=== PATIENT | female | born 1995 | race Caucasian/White ===

== ENCOUNTER → 2018-07-11 | Outpatient (CLI) | payer MEDICAID ==
--- NOTE | 2018-07-11 16:20 | RADIOLOGY REPORT (SQ) ---
EXAM DESCRIPTION: U/S OB 14+ TRNABD 1GES W/O DOP COMPLETED DATE/TIME: 07/11/2018 3:50 pm REASON FOR STUDY: ENCNTR FOR SUPRVSN OF NORMAL FIRST PREG, SECOND TRIMESTER Z34.02 ENCNTR FOR SUPRV SN OF NORMAL FIRST PREG, SECOND TRIME COMPARISON: None. TECHNIQUE: Static and Dynamic grayscale imaging performed of gravid uterus using transabdominal appr oach. Additional selected color Doppler and spectral images recorded. All stored on PACS. LIMITATIONS: None. FINDINGS: FETUSES SEEN:1 EGA: 18 weeks 2 days Calculated using BPD,FL,HC,AC documented on images. No discrepancy with clinica l dates. RUFUS: 12/10/2018 EFW: 232+/- 34 grams PERCENTILE: Not calculated. VANNESSA: Adequate amount. PLACENTA: Posterior GRADE: I PRESENTATION: Breech. ANATOMY: HEART RATE: 144 beats per minute. FOUR CHAMBER HEART: Visualized. THREE VESSEL CORD: Yes. CORD INSERTION: Visualized. KIDNEYS AND BLADDER: Visualized. Appear normal. STOMACH: Visualized. Appears normal. SPINE: Normal as visualized. BRAIN AND LATERAL VENTRICLES: Visualized. Appear normal. OTHER: No other significant finding. MATERNAL ADNEXA: Right ovary measures 2.7 x 1.7 x 1.3 cm. Left ovary measures 3.4 x 1.8 x 2.2 cm. CERVICAL LENGTH: 2.8 cm. Closed. OTHER: No other significant finding. IMPRESSION: LIVING INTRAUTERINE . ESTIMATED GESTATIONAL AGE 18 weeks 2 days NO VISUALIZED ANOMALIES. Trimester of : Second trimester - 13 weeks 1 day to 27 weeks 6 days. TECHNICAL DOCUMENTATION: JOB ID: [id number]- All Rights Reserved Reading location - IP/workstation name: [email or web address]
== END ==
LOC: RAD 14:53
PROVIDERS: ATTEND Midwife
DX: Z34.02 Encounter for supervision of normal first pregnancy, second trimester (principal)
CPT/HCPCS: 76805

== ENCOUNTER 2018-12-15 14:20 | Inpatient (IN) | payer MEDICAID ==
[2018-12-15] MEDS ORDERED: RINGERS SOLUTION,LACTATED 1,000 ML IV PRN (14:44)
[2018-12-15] MEDS ORDERED: RINGERS SOLUTION,LACTATED 1,000 ML IV ONE (14:44)
[2018-12-15 14:56] LABS: APPEARANCE,URINE CLOUDY; BILIRUBIN,URINE NEGATIVE (NEGATIVE); COLOR,URINE YELLOW; GLUCOSE, URINE NEGATIVE (NEGATIVE); KETONES,URINE NEGATIVE (NEGATIVE); LEUKOCYTE ESTERASE,URINE SMALL (NEGATIVE); NITRITE,URINE NEGATIVE (NEGATIVE); PROTEIN,URINE 30 mg/dL (NEGATIVE); URINE SPECIFIC GRAVITY 1.016; UROBILINOGEN,URINE NEGATIVE mg/dL (<2.0)
[2018-12-15 15:12] LABS: URINE AMPHETAMINES SCREEN NEGATIVE; URINE BARBITURATES SCREEN NEGATIVE; URINE BENZODIAZEPINES SCREEN NEGATIVE; URINE COCAINE SCREEN NEGATIVE; URINE MARIJUANA (THC) SCREEN NEGATIVE; URINE METHADONE SCREEN NEGATIVE; URINE PHENCYCLIDINE SCREEN NEGATIVE
[2018-12-15] MEDS ORDERED: OXYTOCIN 10 UNIT/ML VIAL ONE (15:13)
[2018-12-15] MEDS ORDERED: LIDOCAINE 1% INJ-PF (10 MG/ML) 30 ML SDV ONE (15:13)
[2018-12-15] MEDS ORDERED: OXYTOCIN/NORMAL SALINE 20 UNIT/1,000 ML RTUINJ ONE (15:13)
[2018-12-15] MEDS ORDERED: MISOPROSTOL 0.2 MG TABLET ONE (15:13)
[2018-12-15 15:37] LABS: ABSOLUTE LYMPHOCYTES (AUTO) 1.6 10^3/uL (0.5-4.7); ABSOLUTE MONOCYTES (AUTO) 0.5 10^3/uL (0.1-1.4); ABSOLUTE NEUT (AUTO) 9.7 10^3/uL (1.7-8.2); BASOPHILS % (AUTO) 0.1 % (0-2); EOSINOPHILS % (AUTO) 0.2 % (0-6); HEMATOCRIT 37.4 % (36.0-47.0); HEMOGLOBIN 12.5 g/dL (12.0-15.5); LYMPHOCYTES % (AUTO) 13.6 % (13-45); MEAN CORPUSCULAR HEMOGLOBIN 27.4 pg (27.0-33.4); MEAN CORPUSCULAR HGB CONC 33.5 g/dL (32.0-36.0); MEAN CORPUSCULAR VOLUME 82 fl (80-97); MONOCYTES % (AUTO) 4.3 % (3-13); RED BLOOD COUNT 4.57 10^6/uL (3.72-5.28); RED CELL DISTRIBUTION WIDTH 13.5 % (11.5-14.0); SEGMENTED NEUTROPHILS % (AUTO) 81.8 % (42-78); TOTAL CELLS COUNTED % (AUTO) 100 %; WHITE BLOOD COUNT 11.8 10^3/uL (4.0-10.5)
[2018-12-15 15:39] LABS: PLATELET COUNT 55 10^3/uL (150-450)
[2018-12-15] MEDS ORDERED: NALBUPHINE HCL INJ 10 MG/1 ML AMPULE INJ ONE (15:51)
[2018-12-15] MEDS ORDERED: NALBUPHINE HCL INJ 10 MG/1 ML AMPULE ONE ×2 (15:52→18:12)
--- NOTE | 2018-12-15 16:06 | Admission Physical ---
Datetime Report Generated by CPN: 12/15/2018 16:06 CURRENT ADMISSION Hx Assessment: The History has been Reviewed and is Current Chief Complaint: Suspected Ruptured Membranes Admit Impression : Active Labor; Ruptured Membranes Admit Plan: Admit to Unit; Initiate Labor Protocol ALLERGIES Medication Allergies: No Known Allergies (12/15/2018) Latex: No Latex Allergies OBSTETRICAL HISTORY : 1 Para: 0 Term: 0 : 0 SAB: 0 Ectopic: 0 Livin Cesareans: 0 VBACs: 0 Multiple Births: 0 Gestational Diabetes: No Rh Sensitization: No Incompetent Cervix: No JESÚS: No Infertility: No ART Treatment: No Uterine Anomaly: No IUGR: No Hx Previous C/S: No Macrosomia: No Hx Loss/Stillborn: No PIH: No Hx : No Placenta Previa/Abruption: No Depression/PP Depression: No PTL/PROM: No Post Hemorrhage: No Obstetrical History Comments: G1: current SEE RECORDS Alcohol: No Marijuana : No Cocaine: No Other Illicit Drugs: No Cigarettes: Never Smoker. [id number] MEDICAL HISTORY Diabetes: No Blood Transfusion: No Pulmonary Disease (Asthma, TB): No Breast Disease: No Hypertension: No Software Specialist Surgery: No Heart Disease: No Hosp/Surgery: No Autoimmune Disorder: No Anesthetic Complications: No Kidney Disease: No Abnormal Pap Smear: No Neuro/Epilepsy: No Psychiatric Disorders: No Other Medical Diseases: No Hepatitis/Liver Disease: No Significant Family History: No Varicosities/Phlebitis: No Trauma/Violence : No Thyroid Dysfunction: No INFECTIOUS HISTORY Gonorrhea: No Genital Herpes: No Chlamydia: No Tuberculosis: No Syphilis: No Hepatitis: No HIV/AIDS Exposure: No Rash or Viral Illness: No HPV: No PHYSICAL EXAM General: Normal HEENT: Normal Neurologic: Normal Thyroid: Normal Heart: Normal Lungs: Normal Breast: Normal Back: Normal Abdomen: Normal Genitourinary Exam: Normal Extremities: Normal DTRs: Normal Pelvic Type: Adequate Vital Signs: Reviewed VAGINAL EXAM Dilatation: 5 Effacement: 90 Station: -2 Contraction Comments: q 4 minutes MEMBRANES Pooling: Positive Membranes: Ruptured Amniotic Fluid Color: Clear FETUS A Monitoring: External US FHR- Baseline: 135 Variability: Moderate 6-25bpm Accelerations: 10X10 Decelerations: None FHR Category: Category I Admit Comment: G1 admitted in labor after SROM at home. Demetri regularly. GBS negative. Desires Epidural for pain management when needed. Anticipate PLANS FOR LABOR AND DELIVERY Labor and Delivery: None Pain Management: Medications; Epidural Feeding Preference: Formula Circumcision: Yes INFORMED CONSENT Informed Consent Obtained: Vaginal Delivery; Section Delivery; Vacuum/Forceps Assist; Risks, Benefits and Alternatives Discussed Signature: with User ID: [email or web address] : with User ID: [email or web address]
[2018-12-15 17:24] LABS: ALBUMIN 3.6 g/dL (3.5-5.0); ALKALINE PHOSPHATASE 255 U/L (38-126); ANION GAP 12 (5-19); ASPARTATE AMINO TRANSFERASE 21 U/L (14-36); BILIRUBIN,DIRECT 0.1 mg/dL (0.0-0.4); BILIRUBIN,TOTAL 0.2 mg/dL (0.2-1.3); BLOOD UREA NITROGEN 13 mg/dL (7-20); CALCIUM 9.4 mg/dL (8.4-10.2); CARBON DIOXIDE 21 mmol/L (22-30); CHLORIDE 105 mmol/L (98-107); GLUCOSE 98 mg/dL (75-110); TOTAL PROTEIN 6.4 g/dL (6.3-8.2)
[2018-12-15] MEDS ORDERED: OXYTOCIN/NORMAL SALINE 20 UNIT/1,000 ML RTUINJ IV PRN (20:33)
[2018-12-15] MEDS ORDERED: DIBUCAINE 1% OINTMENT 56 GM TP PRN (20:33)
[2018-12-15] MEDS ORDERED: DIPH/PERTUSS(ACELL)/TETANUS VAC/PF 0.5 ML SYR (>=10YO) IM PRN (20:33)
[2018-12-15] MEDS ORDERED: BENZOCAINE/MENTHOL AEROSOL SPRAY 56 ML TOP PRN (20:33)
[2018-12-15] MEDS ORDERED: ZOLPIDEM TARTRATE 5 MG TABLET PO PRN (20:33)
[2018-12-15] MEDS ORDERED: MEASLES,MUMPS&RUBELLA VACC/PF 0.5 ML VIAL SUBCUT PRN (20:33)
[2018-12-15] MEDS ORDERED: ACETAMINOPHEN WITH CODEINE #3 TABLET PO PRN ×2 (20:33)
[2018-12-15] MEDS ORDERED: MISOPROSTOL 0.2 MG TABLET PR ONE (20:35)
[2018-12-16] MEDS: IBUPROFEN 800 MG TABLET PO SCH ×3 (00:20→14:53)
[2018-12-16 08:16] LABS: MEAN CORPUSCULAR HEMOGLOBIN 27.4 pg (27.0-33.4); MEAN CORPUSCULAR HGB CONC 33.1 g/dL (32.0-36.0); MEAN CORPUSCULAR VOLUME 83 fl (80-97); RED BLOOD COUNT 3.38 10^6/uL (3.72-5.28); RED CELL DISTRIBUTION WIDTH 13.7 % (11.5-14.0); WHITE BLOOD COUNT 16.6 10^3/uL (4.0-10.5)
[2018-12-16 08:42] LABS: HEMOGLOBIN 9.3 g/dL (12.0-15.5)
[2018-12-16 08:43] LABS: PLATELET COUNT 48 10^3/uL (150-450)
[2018-12-16] MEDS: PRENATAL VITAMIN W DHA CAPSULE PO SCH (10:13)
[2018-12-16] MEDS: SENNOSIDES/DOCUSATE 8.6-50 MG 1 EACH TABLET PO SCH (10:13)
[2018-12-16] MEDS: DOCUSATE SODIUM 100 MG CAPSULE PO SCH ×2 (10:13→18:40)
[2018-12-16] MEDS: FERROUS SULFATE 325 MG TABLET PO SCH ×2 (10:13→18:40)
--- NOTE | 2018-12-17 08:59 | PDOC CONSULTATION ---
Consultation Consult Date: 12/17/18 Attending physician:: GIGI DURAN Provider Consulted: FAUSTINO GRULLON Consult reason:: Thrombocytopenia in the setting of History of Present Illness Admission Date/PCP: 12/15/18 14:47 JOSE FRANCISCO PACE CNM Patient complains of: Thrombocytopenia History of Present Illness: DENNIS JOHNSON is a 23 year old female with known history of thrombocytopenia in the setting of , recently delivered a healthy baby and did well with delivery, predelivery platelet count was in the 70s and is dropped down to the 50s, but patient seems to be doing well and did not have any excessive bleeding, and office platelet count was 60-70. We felt it was gestational thrombocytopenia more than ITP, but we discussed with the patient today that only time will tell, and if over the next 4 to 6 weeks her platelet counts recover to greater than 100 or 130 then it probably is gestational thrombus cytopenia. If instead her platelet count remains 50-80, then we discussed this probably ITP in the something that we will be monitoring closely. Past Medical History Hematology: Reports: Other - Thrombocytopenia Past Surgical History Past Surgical History: Reports: None Social History Information Source: Patient Lives with: Spouse/Significant other Smoking Status: Never Smoker Electronic Cigarette use?: No Frequency of Alcohol Use: None Hx Recreational Drug Use: No Hx Prescription Drug Abuse: No - Advance Directive Resuscitation Status: Full Code Family History Family History: Reviewed & Not Pertinent Parental Family History Reviewed: Yes Children Family History Reviewed: Yes Sibling(s) Family History Reviewed.: Yes Medication/Allergy Allergies/Adverse Reactions: No Known Allergies Allergy (Verified 12/15/18 14:43) Review of Systems Constitutional: ABSENT: chills, fever(s), headache(s), weight gain, weight loss Eyes: ABSENT: visual disturbances Ears: ABSENT: hearing changes Cardiovascular: ABSENT: chest pain, dyspnea on exertion, edema, orthropnea, palpitations Respiratory: ABSENT: cough, hemoptysis Gastrointestinal: ABSENT: abdominal pain, constipation, diarrhea, hematemesis, hematochezia, nausea, vomiting Genitourinary: ABSENT: dysuria, hematuria Musculoskeletal: ABSENT: joint swelling Integumentary: ABSENT: rash, wounds Neurological: ABSENT: abnormal gait, abnormal speech, confusion, dizziness, focal weakness, syncope Psychiatric: ABSENT: anxiety, depression, homidical ideation, suicidal ideation Endocrine: ABSENT: cold intolerance, heat intolerance, polydipsia, polyuria Hematologic/Lymphatic: ABSENT: easy bleeding, easy bruising Physical Exam Vital Signs: Temp Pulse Resp BP Pulse Ox 98.4 F 59 L 16 106/61 100 12/17/18 07:39 12/17/18 07:39 12/17/18 07:39 12/17/18 07:39 12/17/18 07:39 Intake & Output 12/16/18 12/17/18 12/18/18 06:59 06:59 06:59 Intake Total 500 Balance 500 Weight 56.1 kg General appearance: PRESENT: no acute distress, well-developed, well-nourished Head exam: PRESENT: atraumatic, normocephalic Eye exam: PRESENT: conjunctiva pink, EOMI, PERRLA. ABSENT: scleral icterus Ear exam: PRESENT: normal external ear exam Mouth exam: PRESENT: moist, tongue midline Neck exam: ABSENT: carotid bruit, JVD, lymphadenopathy, thyromegaly Respiratory exam: PRESENT: clear to auscultation huseyin. ABSENT: rales, rhonchi, wheezes Cardiovascular exam: PRESENT: RRR. ABSENT: diastolic murmur, rubs, systolic murmur Pulses: PRESENT: normal dorsalis pedis pul Vascular exam: PRESENT: normal capillary refill GI/Abdominal exam: PRESENT: normal bowel sounds, soft. ABSENT: distended, guarding, mass, organolmegaly, rebound, tenderness Rectal exam: PRESENT: deferred Extremities exam: PRESENT: full ROM. ABSENT: calf tenderness, clubbing, pedal edema Neurological exam: PRESENT: alert, awake, oriented to person, oriented to place, oriented to time, oriented to situation, CN II-XII grossly intact. ABSENT: motor sensory deficit Psychiatric exam: PRESENT: appropriate affect, normal mood. ABSENT: homicidal ideation, suicidal ideation Skin exam: PRESENT: dry, intact, warm. ABSENT: cyanosis, rash Results Laboratory Results: 12/16/18 07:03 12/15/18 15:00 Assessment & Plan - Diagnosis (1) Thrombocytopenia Is this a current diagnosis for this admission?: Yes Plan: Probably gestational thrombocytopenia, we will see patient back in 4 to 6 weeks in our office and recheck her platelet count - Time Time Spent: 50 to 70 Minutes - Inpatient Certification Based on my medical assessment, after consideration of the patient's comorbidities, presenting symptoms, or acuity I expect that the services needed warrant INPATIENT care.: Yes I certify that my determination is in accordance with my understanding of Medicare's requirements for reasonable and necessary INPATIENT services [42 CFR 412.3e].: Yes Medical Necessity: Risk of Complication if Not Cared For in Hospital
[2018-12-17] MEDS: IBUPROFEN 800 MG TABLET PO SCH ×2 (09:41→14:03)
[2018-12-17] MEDS: PRENATAL VITAMIN W DHA CAPSULE PO SCH (10:10)
[2018-12-17] MEDS: DOCUSATE SODIUM 100 MG CAPSULE PO SCH (10:10)
[2018-12-17] MEDS: SENNOSIDES/DOCUSATE 8.6-50 MG 1 EACH TABLET PO SCH (10:10)
[2018-12-17] MEDS: FERROUS SULFATE 325 MG TABLET PO SCH (10:10)
--- NOTE | 2018-12-17 11:26 | PDOC PROGRESS REPORT ---
Subjective-OB Progress Note for:: 12/17/18 Subjective: Doing well, no c/o, Dr. Anne saw pt this am, normal bleeding, bottle feeding Physical Exam (OB) Vital Signs: Temp Pulse Resp BP Pulse Ox 97.7 F 83 14 96/55 L 99 12/17/18 07:53 12/17/18 07:53 12/17/18 07:53 12/17/18 07:53 12/17/18 07:53 Intake & Output 12/16/18 12/17/18 12/18/18 06:59 06:59 06:59 Intake Total 500 Balance 500 Weight 56.1 kg - PIH/Pre-Eclampsia Clonus: Negative Headache: Absent Epigastric Pain: No Visual Changes: No - Lochia Lochia Amount: Scant < 10 ml Lochia Color: Rubra/Red - Abdomen Description: Soft Hernia Present: No Fundal Description: Firm, Midline Fundal Height: u/u - u/2 Objective-Diagnostic Laboratory: 12/16/18 07:03 12/15/18 15:00 Assessment and Plan(PN) - Assessment and Plan (1) Thrombocytopenia Is this a current diagnosis for this admission?: Yes (2) Vaginal delivery Is this a current diagnosis for this admission?: Yes - Time Spent with Patient Time with patient: Less than 15 minutes Medications reviewed and adjusted accordingly: Yes - Disposition Anticipated Discharge: Home Within: within 24 hours
--- NOTE | 2018-12-17 11:34 | PDOC DISCHARGE SUMMARY ---
Impression - Admit/DC Date/PCP Admission Date/Primary Care Provider: 12/15/18 14:47 JOSE FRANCISCO PACE CNM Discharge Date: 12/17/18 - Discharge Diagnosis (1) Thrombocytopenia Is this a current diagnosis for this admission?: Yes (2) Vaginal delivery Is this a current diagnosis for this admission?: Yes - Additional Information Resuscitation Status: Full Code Discharge Diet: As Tolerated, Regular Discharge Activity: Activity As Tolerated, No Lifting Over 10 Pounds, No Lifting/Push/Pulling, Pelvic Rest Referrals: JOSE FRANCISCO PACE CNM [Primary Care Provider] - GIIG DURAN MD [SURVEY ASSOCIATE] - (4 weeks) HPI Gestational Age: 39 Reason(s) for Admission: Onset of Labor Admission Note: srom Procedures: NST, Ultrasound Intrapartum Procedure(s): Spontaneous Vaginal Delivery Complication(s): Laceration-Labial Laceration-Degree: 1st - thrombocytopenia, seen by Oncology Hospital Course Hospital Course: routine Results Laboratory Results: WBC 16.6 10^3/uL (4.0-10.5) H 12/16/18 07:03 RBC 3.38 10^6/uL (3.72-5.28) L 12/16/18 07:03 Hgb 9.3 g/dL (12.0-15.5) L D 12/16/18 07:03 Hct 28.0 % (36.0-47.0) L 12/16/18 07:03 MCV 83 fl (80-97) 12/16/18 07:03 MCH 27.4 pg (27.0-33.4) 12/16/18 07:03 MCHC 33.1 g/dL (32.0-36.0) 12/16/18 07:03 RDW 13.7 % (11.5-14.0) 12/16/18 07:03 Plt Count 48 10^3/uL (150-450) L 12/16/18 07:03 Lymph % (Auto) 13.6 % (13-45) 12/15/18 15:00 Turner % (Auto) 4.3 % (3-13) 12/15/18 15:00 Eos % (Auto) 0.2 % (0-6) 12/15/18 15:00 Baso % (Auto) 0.1 % (0-2) 12/15/18 15:00 Absolute Neuts (auto) 9.7 10^3/uL (1.7-8.2) H 12/15/18 15:00 Absolute Lymphs (auto) 1.6 10^3/uL (0.5-4.7) 12/15/18 15:00 Absolute Monos (auto) 0.5 10^3/uL (0.1-1.4) 12/15/18 15:00 Absolute Eos (auto) 0.0 10^3/uL (0.0-0.6) 12/15/18 15:00 Absolute Basos (auto) 0.0 10^3/uL (0.0-0.2) 12/15/18 15:00 Seg Neutrophils % 81.8 % (42-78) H 12/15/18 15:00 Sodium 137.6 mmol/L (137-145) 12/15/18 15:00 Potassium 4.0 mmol/L (3.6-5.0) 12/15/18 15:00 Chloride 105 mmol/L (98-107) 12/15/18 15:00 Carbon Dioxide 21 mmol/L (22-30) L 12/15/18 15:00 Anion Gap 12 (5-19) 12/15/18 15:00 BUN 13 mg/dL (7-20) 12/15/18 15:00 Creatinine 0.94 mg/dL (0.52-1.25) 12/15/18 15:00 Est GFR ( Amer) > 60 (>60) 12/15/18 15:00 Est GFR (MDRD) Non-Af > 60 (>60) 12/15/18 15:00 Glucose 98 mg/dL (75-110) 12/15/18 15:00 Calcium 9.4 mg/dL (8.4-10.2) 12/15/18 15:00 Total Bilirubin 0.2 mg/dL (0.2-1.3) 12/15/18 15:00 Direct Bilirubin 0.1 mg/dL (0.0-0.4) 12/15/18 15:00 Neonat Total Bilirubin Not Reportable 12/15/18 15:00 Neonat Direct Bilirubin Not Reportable 12/15/18 15:00 Neonat Indirect Bili Not Reportable 12/15/18 15:00 AST 21 U/L (14-36) 12/15/18 15:00 ALT 11 U/L (<35) 12/15/18 15:00 Alkaline Phosphatase 255 U/L (38-126) H 12/15/18 15:00 Total Protein 6.4 g/dL (6.3-8.2) 12/15/18 15:00 Albumin 3.6 g/dL (3.5-5.0) 12/15/18 15:00 Urine Color YELLOW 12/15/18 14:30 Urine Appearance CLOUDY 12/15/18 14:30 Urine pH 8.0 (5.0-9.0) 12/15/18 14:30 Ur Specific [place] 1.016 12/15/18 14:30 Urine Protein 30 mg/dL (NEGATIVE) H 12/15/18 14:30 Urine Glucose (UA) NEGATIVE mg/dL (NEGATIVE) 12/15/18 14:30 Urine Ketones NEGATIVE mg/dL (NEGATIVE) 12/15/18 14:30 Urine Blood LARGE (NEGATIVE) H 12/15/18 14:30 Urine Nitrite NEGATIVE (NEGATIVE) 12/15/18 14:30 Urine Bilirubin NEGATIVE (NEGATIVE) 12/15/18 14:30 Urine Urobilinogen NEGATIVE mg/dL (<2.0) 12/15/18 14:30 Ur Leukocyte Esterase SMALL (NEGATIVE) H 12/15/18 14:30 Urine Ascorbic Acid 40 (NEGATIVE) H 12/15/18 14:30 Membranes Rupture POSITIVE (NEGATIVE) H 12/15/18 14:33 Urine Opiates Screen NEGATIVE 12/15/18 14:30 Urine Methadone Screen NEGATIVE 12/15/18 14:30 Ur Barbiturates Screen NEGATIVE 12/15/18 14:30 Ur Phencyclidine Scrn NEGATIVE 12/15/18 14:30 Ur Amphetamines Screen NEGATIVE 12/15/18 14:30 U Benzodiazepines Scrn NEGATIVE 12/15/18 14:30 Urine Cocaine Screen NEGATIVE 12/15/18 14:30 U Marijuana (THC) Screen NEGATIVE 12/15/18 14:30 RPR NONREACTIVE (NONREACTIVE) 12/15/18 15:00 Blood Type A POSITIVE 12/15/18 15:00 Antibody Screen NEGATIVE 12/15/18 15:00 Plan Health Concerns: f/u with / Omid, thrombocytopenia Plan of Treatment: pp care Goals: healthy mom and baby Time Spent: Less than 30 Minutes
[2018-12-17 12:05] VITALS: BP 106/61
--- NOTE | 2018-12-19 12:08 | Delivery Summary ---
Del Sum A-C Datetime Report Generated by CPN: 12/19/2018 12:08 DELIVERY PERSONNEL DELIVERY PERSONNEL: [id number] Delivery Doctor:: Tenisha Earl MD Labor and Delivery Nurse:: TAMMI Tatum Labor and Delivery Nurse:: Kya Soto RN Nursery Nurse:: Beth Negrete RN Nursery Nurse:: Leonor Bergeron RN Manager Utilization/MOTORCYCLE TECHNICIAN: Marcela Ross, ST MATERNAL INFORMATION Delivery Anesthesia: Local Medications After Delivery: Pitocin Drip 20 Units/1000ml NSS; Cytotec 1000mcg Per Rectum/Vagina Delivery QBL: 400 Maternal Complications: Other Other Maternal Complications: Thrombocytopenia of Complication Details: thrombocytopenia Provider Comments: After delivery of the head, a nuchal cord x2 was noted and reduced without difficulty. The shoulders and the rest of the body delivered easily. Cord clamping delayed 30 seconds as the infant was vigorous. After cord doubly clamped and cut the was placed on Mothers chest. Uterus felt boggy off and on. Massage ongoing. Cytotec 1,000mcg given per rectum. Both mother and infant stable. LABOR SUMMARY EDC: 12/10/2018 00:00 No. Babies in Womb: 1 Attempted: No Labor Anesthesia: None LABOR INFORMATION Reason for Induction: Not Applicable Onset of Labor: 12/15/2018 14:38 Complete Dilatation: 12/15/2018 19:34 Oxytocin: N/A Group B Beta Strep: negative Steroids Given: None Reason Steroids Not Administered: Not Applicable MEMBRANES Membranes Rupture Method: Spontaneous Rupture of Membranes: 12/15/2018 14:38 Length of Rupture (hr): 5.40 Amniotic Fluid Color: Light Meconium Amniotic Fluid Amount: Moderate Amniotic Fluid Odor: Normal STAGES OF LABOR Stage 1 hr: 4 Stage 1 min: 56 Stage 2 hr: 0 Stage 2 min: 28 Stage 3 hr: 0 Stage 3 min: 2 Total Time in Labor hr: 5 Total Time in Labor min: 26 VAGINAL DELIVERY Episiotomy: None Laceration Extension #1: Second Degree Other Laceration: bilateral labial Laceration Repair: Yes Laceration Repair Note: Bilateral labial lacerations repaired with 2-0 chromic and 3-0 chromic Sponge Count Correct: N/A; Yes Sharps Count Correct: Yes CSECTION DELIVERY Primary Indication: N/A Secondary Indication: N/A CSection Incision: N/A BABY A INFORMATION Infant Delivery Date/Time: 12/15/2018 20:02 Method of Delivery: Vaginal Born in Route : No : N/A Forceps: N/A Vacuum Extraction: N/A Shoulder Dystocia : No PRESENTATION/POSITION BABY A Presentation: Cephalic Cephalic Presentation: Vertex Vertex Position: CHANTEL to Direct OP Breech Presentation: N/A PLACENTA INFORMATION BABY A Placenta Delivery Time : 12/15/2018 20:04 Placenta Method of Delivery: Spontaneous Placenta Status: Delivered SCORES BABY A Heart Rate 1 min: >100 bpm Resp Effort 1 min: Good Cry Reflex Irritability 1 min: Cough or Sneeze or Pulls Away Muscle Tone 1 min: Active Motion Color 1 min: Blue/Pale Resuscitation Effort 1 min: Tactile Stimulation SCORE 1 MIN: 8 Heart Rate 5 min: >100 bpm Resp Effort 5 min: Good Cry Reflex Irritability 5 min: Cough or Sneeze or Pulls Away Muscle Tone 5 min: Active Motion Color 5 min: Blue/Pale Resuscitation Effort 5 min: Tactile Stimulation SCORE 5 MIN: 8 INFANT INFORMATION BABY A Gestational Age at Delivery: 40.5 Gestational Status: Full Term- 39- 40.6 Weeks Outcome : Liveborn Infant Condition : Stable Sex: Male IDENTIFICATION BABY A Infant Verification Date/Time: 12/15/2018 20:19 ID Band Number: [id number] Mother's Name Verified: Yes RN Verifying : Neto A. RN Additional Verifying Personnel: RecipharmRory RN CORD INFORMATION BABY A No. Cord Vessels: 3 Nuchal Cord : Around Neck x2, Loose Cord Blood Taken: Yes-For Storage (Mom's Blood type +) Infant Suction: None ASSESSMENT BABY A Infant Complications: Multiple Late Decels; Multiple Variable Decels; Meconium Physical Findings at Delivery: Caput Succedaneum; Other Physical Findings- Other: terminal meconium Infant Respirations: Appears Normal Skin to Skin: Yes Skin to Skin: Yes Skin to Skin Time (min): 60 Steam Meter Reader/ALS Called : No Transferred To: Remains with Mother BABY B INFORMATION : N/A SIGNATURES Signature: with User ID: [email or web address] : with User ID: [email or web address]
== END 2018-12-17 14:35 | disposition home or self-care (01) | DRG 807 ==
LOC: LC 14:20 → LR 14:47 → 2S 23:23
PROVIDERS: ADMIT Obstetrics & Gynecology; ATTEND Obstetrics & Gynecology
PROC: 10E0XZZ Delivery of Products of Conception, External Approach (ICD-10-PCS; principal; 2018-12-15)
PROC: 0KQM0ZZ Repair Perineum Muscle, Open Approach (ICD-10-PCS; 2018-12-15)
DX: O99.12 Other diseases of the blood and blood-forming organs and certain disorders involving the immune mechanism complicating childbirth (principal); Z37.0 Single live birth; D69.59 Other secondary thrombocytopenia; O69.81X0 Labor and delivery complicated by cord around neck, without compression, not applicable or unspecified; O77.0 Labor and delivery complicated by meconium in amniotic fluid; O70.1 Second degree perineal laceration during delivery; Z3A.40 40 weeks gestation of pregnancy; O76 Abnormality in fetal heart rate and rhythm complicating labor and delivery
CPT/HCPCS: 36415; 80053; 80307; 81005; 84112; 85025; 85027; 86592; 86850; 86900; 86901; 88307; J2300; J2590; J3490